=== PATIENT | female | born 1975 | race Native Hawaiian/Other Pacific Islander ===

== ENCOUNTER 2021-03-03 11:09 | Outpatient (CLI) | payer BC, OTHER ==
[~2021-03-03] VITALS: Ht 149.9 cm; Wt 57.3 kg
== END 2021-03-03 20:32 | disposition home or self-care (01) ==
LOC: INF 11:09
PROVIDERS: ATTEND Internal Medicine
DX: U07.1 COVID-19 (principal); Z23 Encounter for immunization
CPT/HCPCS: 96365; M0244